=== PATIENT | female | born 1940 | race Caucasian/White ===

== ENCOUNTER 2018-10-10 01:42 | Emergency (ER) | payer OTHER ==
[2018-10-10] MEDS: HYDROCODONE/APAP (5/325) TAB PO (01:57)
[2018-10-10 02:30] LABS: ADD MAN DIFF? NO
[2018-10-10] MEDS: SOD CHLORIDE 0.9% 500 ML IV (02:35)
[2018-10-10] MEDS: morphine 4 MG/ML VIAL IV ×2 (02:35→03:46)
[2018-10-10] MEDS: ONDANSETRON 4 MG INJ IV (02:35)
[2018-10-10 02:37] LABS: WHITE BLOOD COUNT 8.8 10^3/ul (4.8-10.8)
[2018-10-10 02:37] LABS: BASOPHIL # 0.1 10^3/ul (0.0-0.1); BASOPHILS % 0.7 % (0.0-2.0); EOSINOPHILS # 0.2 10^3/ul (0.0-0.5); EOSINOPHILS % 2.6 % (0.0-7.0); LYMPHOCYTES # 3.5 10^3/ul (0.8-2.9); LYMPHOCYTES % 40.2 % (15.0-51.0); MEAN CORPUSCULAR HEMOGLOBIN 28.6 pg (29.0-33.0); MEAN CORPUSCULAR HGB CONC 31.1 g/dl (32.0-37.0); MEAN PLATELET VOLUME 11.7 fl (7.4-10.4); MONOCYTE # 0.7 10^3/ul (0.3-0.9); MONOCYTES % 8.2 % (0.0-11.0); NEUTROPHIL # 4.2 10^3/ul (1.6-7.5); PLATELET COUNT 206 10^3/UL (140-415); RED BLOOD COUNT 4.89 10^6/ul (4.20-5.40); RED CELL DISTRIBUTION WIDTH 14.6 % (11.5-14.5)
[2018-10-10 02:57] LABS: ALANINE AMINOTRANSFERASE 77 IU/L (13-69); ALBUMIN 4.5 g/dl (3.3-4.9); ALBUMIN/GLOBULIN RATIO 1.36; ALKALINE PHOSPHATASE 87 IU/L (42-121); ANION GAP 13 (5-13); ASPARTATE AMINO TRANSFERASE 71 IU/L (15-46); BILIRUBIN,INDIRECT 0.2 mg/dl (0-1.1); BILIRUBIN,TOTAL 0.2 mg/dl (0.2-1.3); BLOOD UREA NITROGEN 21 mg/dl (7-20); CALCIUM 10.3 mg/dl (8.4-10.2); CARBON DIOXIDE 24 mmol/L (21-31); CHLORIDE 106 mmol/L (97-110); CREATININE 0.77 mg/dl (0.44-1.00); GLUCOSE 266 mg/dl (70-220); POTASSIUM 3.9 mmol/L (3.5-5.1); SODIUM 143 mmol/L (135-144); TOTAL PROTEIN 7.8 g/dl (6.1-8.1)
[2018-10-10 03:14] LABS: B-TYPE NATRIURETIC PEPTIDE 794 PG/ML (0-450); TROPONIN-I < 0.012 ng/ml (0.000-0.120)
[2018-10-10] MEDS: FUROSEMIDE 40 MG INJ IV (05:10)
[2018-10-10] MEDS ORDERED: ONDANSETRON 4 MG INJ IV (06:20)
[2018-10-10] MEDS: HYDROmorphONE 1 MG/ML SYG IV (06:23)
== END 2018-10-10 07:13 | disposition short-term general hospital (02) ==
LOC: E/R 01:42
DX: R07.9 Chest pain, unspecified (principal); E11.9 Type 2 diabetes mellitus without complications; Z87.891 Personal history of nicotine dependence
CPT/HCPCS: 71045; 73030; 80053; 82962; 83605; 83880; 84484; 85025; 87040; 87400; 93005; 96374; 96375; 96376; 99285-25